=== PATIENT | male | born 1960 | race Caucasian/White ===

== ENCOUNTER → 2020-10-11 | Outpatient (CLI) | payer MEDICARE ==
[~2020-10-11] MED LIST: ASPI-886 PO; CARI350T PO; GLIM4TAB8 PO; INSU100I13 SQ; LINZESS145 MCG PO; MERC50TA PO; MORP60TA25 PO; SIMV20TA18 PO; ZOLP5TAB5 PO
--- NOTE | 2020-10-11 14:14 | EKG ---
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
[2020-10-11 14:36] LABS: ALBUMIN 3.8 g/dL (3.4-5.0); CALCIUM 8.9 mg/dL (8.5-10.1); POTASSIUM 3.7 mmol/L (3.5-5.1); TOTAL BILIRUBIN 0.5 mg/dL (0.2-1.0); TOTAL PROTEIN 7.5 g/dL (6.4-8.2)
[2020-10-13 02:09] LABS: HEMOGLOBIN A1C 8.7 % (4.8-5.6)
== END ==
LOC: SURGPAT 12:20
PROVIDERS: ATTEND Surgery
DX: Z01.818 Encounter for other preprocedural examination (principal); K43.2 Incisional hernia without obstruction or gangrene; K43.9 Ventral hernia without obstruction or gangrene; I49.3 Ventricular premature depolarization; R94.31 Abnormal electrocardiogram [ECG] [EKG]; I49.1 Atrial premature depolarization; Z20.822 Contact with and (suspected) exposure to COVID-19
CPT/HCPCS: 36415; 80053; 83036; 93005; U0003; U0005

== ENCOUNTER 2021-02-11 06:22 | Outpatient (CLI) | payer MEDICARE ==
[~2021-02-11] VITALS: Ht 188 cm; Wt 136.4 kg
[~2021-02-11 06:22] MED LIST changes: +AMOX1TAB24 PO; +OXYC-325 PO
[2021-02-11 07:51] VITALS: BP 135/65
[2021-02-11] MEDS ORDERED: vitamin D (08:22)
[2021-02-11] MEDS ORDERED: CHOL5000 PO (08:22)
[2021-02-11] MEDS ORDERED: LIDOCAINE WITH 8.4% SOD BICARB 3 ML DISP.SYRIN. ONE (08:24)
[2021-02-11 08:35] VITALS: BP 186/77
[2021-02-11] MEDS ORDERED: LIDOCAINE WITH 8.4% SOD BICARB 3 ML DISP.SYRIN. INJ ONE (08:45)
[2021-02-11 09:05] VITALS: BP 146/71
[2021-02-11 09:15] VITALS: BP 119/83
[2021-02-11 09:30] VITALS: BP 136/93
[2021-02-11 09:45] VITALS: BP 122/62
--- NOTE | 2021-02-11 10:06 | NUR ---
pt A&O x4. gave instructions on bulb drain care. answered questions. dressing around left lower abd drain is clean and dry. pt ambulated out to vehicle w/o problem.
--- NOTE | 2021-02-12 15:08 | RAD ---
Ultrasound-guided drainage, anterior abdominal wall fluid collection 02/11/2021 INDICATION: Anterior abdominal wall fluid collection, history of hernia repair. Prior CT of the abdom en and pelvis was performed and reviewed demonstrating Loculated collection in the anterior abdominal wall, superficial to the patient's hernia mesh. Consent: The procedure was explained in its entirety to the patient or the patients designated repres entative by a member of the treatment team, including a discussion of the risks, benefits and commonl y accepted alternatives to the procedure, as well as the expected consequences of no therapy whatsoev er. Discussion of the risks included, but was not limited to, those that are most frequent and thos e that are rare but possibly severe or life-threatening, as well as the possibility of unforeseen com plications. The patient was prepped and draped using maximum sterile technique, including the use of: Current stefanie deline approved cutaneous antisepsis, a large sterile sheet to establish a sterile field. 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 Ultrasound evaluation demonstrates a multiloculated collection in the anterior abdominal wall. The ov erlying skin was anesthetized with 1% lidocaine. Under direct ultrasound guidance a 5 [place] sheathed needle was advanced into the collection. A guidewire was advanced into the collection, over which fo llowing dilatation a 10 [place] drain was placed. Approximately 1800 cc of serosanguineous fluid was r emoved. The catheter was then connected to bulb suction drainage. Catheter was secured in place. Ster ile dressings were applied. No immediate complications were identified. IMPRESSION: Ultrasound-guided placement of a drain into a multiloculated anterior abdominal wall flui d collection yielding 1.8 L of serosanguineous fluid. Patient has scheduled follow-up with the regino barajas surgeon. Electronically signed by: Wesley Sandoval MD (02/12/2021 3:05 PM) [id number]
== END 2021-02-11 10:00 | disposition home or self-care (01) ==
LOC: INTRAD 06:22
PROVIDERS: ATTEND Surgery
DX: L76.34 Postprocedural seroma of skin and subcutaneous tissue following other procedure (principal); Z20.822 Contact with and (suspected) exposure to COVID-19; E78.00 Pure hypercholesterolemia, unspecified; K21.9 Gastro-esophageal reflux disease without esophagitis; M19.90 Unspecified osteoarthritis, unspecified site; F41.9 Anxiety disorder, unspecified; F32.9 Major depressive disorder, single episode, unspecified; E11.9 Type 2 diabetes mellitus without complications; Z79.4 Long term (current) use of insulin; Z90.49 Acquired absence of other specified parts of digestive tract; Z98.890 Other specified postprocedural states; Y83.8 Other surgical procedures as the cause of abnormal reaction of the patient, or of later complication, without mention of misadventure at the time of the procedure
CPT/HCPCS: 10160; 76942; 87426; C1769; C1892; C1894; J3490

== ENCOUNTER → 2021-02-26 | Outpatient (CLI) | payer MEDICARE ==
[2021-02-11 09:45] VITALS: BP 122/62
[~2021-02-26] MED LIST changes: +CHOL5000 PO; +vitamin D
== END ==
LOC: SPEC 13:33
PROVIDERS: ATTEND Surgery
DX: Z09 Encounter for follow-up examination after completed treatment for conditions other than malignant neoplasm (principal)
CPT/HCPCS: 87071; 87075